=== PATIENT | female | born 1985 | race Caucasian/White ===

== ENCOUNTER 2018-06-25 14:00 | Outpatient (CLI) | payer BC ==
[~2018-06-25 14:00] MED LIST: BIOT25006 PO; CHOL200041 PO; FOLI0.4T2 PO; FOLI1TAB24 PO; LAMO150T2 PO; LAMO200T50 PO; LEVE500T6 PO; MULT-928 PO; MULT-974 PO; OMEG-59 PO; ONDA-42 SL; PHEN-633 PO; SERT20OR PO; VITA1CAP29 PO; [UNRECOGNIZED DRUG - CODE] PO
== END 2018-06-25 14:30 | disposition home or self-care (01) ==
LOC: SLEEP 14:00
PROVIDERS: ATTEND Otolaryngology Otolaryngology/Facial Plastic Surgery
DX: G47.33 Obstructive sleep apnea (adult) (pediatric) (principal); R06.83 Snoring; G47.10 Hypersomnia, unspecified

== ENCOUNTER → 2019-10-26 | Outpatient (CLI) | payer BC ==
--- NOTE | 2019-10-26 12:42 | Diagnostic Imaging Report ---
INDICATION: Routine screening No prior mammograms are available for comparison. This a baseline study. 2-D and 3-D bilateral screening mammography was performed with CAD. Both breasts are heterogeneously dense, limiting the sensitivity of mammography. There are densities in the superior aspect of the right breast mid depth on the MLO view. There are also 2 densities at the nipple line on the right MLO view at mid depth. These may represent cysts. Additional views are recommended. Left breast is unremarkable. No suspicious microcalcifications are seen. Axillae are unremarkable. IMPRESSION: BI-RADS 0 Right breast densities. Additional views are recommended for further evaluation. ACR BI-RADS Category 0: Incomplete. (Needs additional imaging evaluation). Result letter will be mailed to the patient. Note: At least 10% of breast cancer is not imaged by mammography. Dictated by: Dictated on workstation # [id number]
== END ==
LOC: RAD 07:16
PROVIDERS: ATTEND Family Medicine
DX: Z12.31 Encounter for screening mammogram for malignant neoplasm of breast (principal)
CPT/HCPCS: 77063; 77067

== ENCOUNTER → 2019-11-08 | Outpatient (CLI) | payer BC ==
--- NOTE | 2019-11-08 13:15 | Diagnostic Imaging Report ---
INDICATION: Right breast density. Patient presents for additional views. COMPARISON: Correlation is made with the recent screening study from 10/26/2019. TECHNIQUE: Unilateral right 2D and 3D diagnostic mammography was performed including spot compression CC and ML views as well as conventional 90 degree lateral view. The current study was evaluated with a Computer Aided Detection (CAD) system. FINDINGS: There is a persistent nodular density in the upper right breast approximately 6 cm from the nipple at the 11 to 12 o'clock location. No other suspicious abnormality is seen. IMPRESSION: Persistent density in the upper right breast 6 cm from the nipple. Further evaluation with ultrasound is recommended and will be performed today. ACR BI-RADS Category 0: Incomplete. (Needs additional imaging evaluation). Result letter will be mailed to the patient. Note: At least 10% of breast cancer is not imaged by mammography. Dictated by: Dictated on workstation # [id number]
--- NOTE | 2019-11-08 14:01 | Diagnostic Imaging Report ---
INDICATION: Right breast density. This study is performed for further evaluation. COMPARISON: Correlation is made with the diagnostic mammogram from earlier this same day and the screening mammogram from 10/26/2019. FINDINGS: Sonographic interrogation of the upper right breast was performed. There are several small clusters of cysts at the 10 o'clock location of the right breast approximately 5 cm from the nipple. These likely account for the mammographic densities. No solid breast mass or concerning sonographic finding is identified. IMPRESSION: Clusters of cysts at the 10 o'clock location of the right breast 5 cm from the nipple, likely accounting for the mammographic density. Even so, followup right mammogram and right breast ultrasound in 6 months is recommended to show continued stability. ACR BI-RADS Category 3: Probably benign findings. Result letter will be mailed to the patient. Note: At least 10% of breast cancer is not imaged by mammography. Dictated by: Dictated on workstation # [id number]
== END ==
LOC: RAD 12:31
PROVIDERS: ATTEND Nurse Practitioner Family
DX: N60.01 Solitary cyst of right breast (principal)
CPT/HCPCS: 76642; 77065; G0279